=== PATIENT | female | born 1965 | race Caucasian/White ===

== ENCOUNTER 2017-02-02 21:34 | Emergency (ER) | payer MEDICARE, MEDICAID ==
[~2017-02-02] VITALS: Ht 170.2 cm; Wt 73.1 kg
[~2017-02-02 21:34] MED LIST: ACET-1600 PO; EZET10TA3 PO; FLUT1DIS5 IH; GUAI600T53 PO; HUM100VI6 INJ; INSU100V10 INJ; LEVA0.313; LEVO500T33 PO; LISI5TAB7 PO; MONT10TA6 PO; NICO1PAT5 TD; PRED10TA PO
[2017-02-02 23:51] LABS: HEMOGLOBIN 15.7 g/dL (11.7-16.4)
[2017-02-02 23:52] VITALS: BP 122/76
[2017-02-02 23:57] LABS: BLOOD UREA NITROGEN 11 mg/dL (7-18)
[2017-02-03] LABS: ASPARTATE AMINO TRANSFERASE 21 U/L (15-37)
[2017-02-03] MEDS ORDERED: ACETAMINOPHEN 325 MG TABLET PO ONE (00:30)
== END 2017-02-03 01:02 | disposition home or self-care (01) ==
LOC: ED 23:47
DX: R10.9 Unspecified abdominal pain (principal); E11.9 Type 2 diabetes mellitus without complications; I11.0 Hypertensive heart disease with heart failure; I50.9 Heart failure, unspecified; J44.9 Chronic obstructive pulmonary disease, unspecified
CPT/HCPCS: 36415; 80053; 81001; 83690; 85025; 99284

== ENCOUNTER 2017-03-04 17:15 | Emergency (ER) | payer MEDICARE, MEDICAID ==
[~2017-03-04] VITALS: Ht 170.2 cm; Wt 76.5 kg
[2017-03-04] MEDS ORDERED: GABA300C10 PO (18:00)
[2017-03-04] MEDS ORDERED: SODIUM CHLORIDE FLUSH 10ML SYR IVF ONE (18:00)
[2017-03-04] MEDS ORDERED: ALBU18HF INH (18:00)
[2017-03-04] MEDS ORDERED: LOSA25TA5 PO (18:00)
[2017-03-04 18:20] LABS: ASPARTATE AMINO TRANSFERASE 15 U/L (15-37); BLOOD UREA NITROGEN 15 mg/dL (7-18)
[2017-03-04] MEDS ORDERED: MAALOX/HYOSCYAMINE/LIDOCAINE 45 ML BOTTLE PO ONE (18:30)
[2017-03-04] MEDS ORDERED: MAALOX/HYOSCYAMINE/LIDOCAINE 45 ML BOTTLE ONE (18:52)
[2017-03-04 19:28] VITALS: BP 119/71
== END 2017-03-04 19:30 | disposition home or self-care (01) ==
LOC: ED 19:24
DX: R10.11 Right upper quadrant pain (principal); Z90.49 Acquired absence of other specified parts of digestive tract; J44.9 Chronic obstructive pulmonary disease, unspecified; I50.9 Heart failure, unspecified
CPT/HCPCS: 36415; 76700; 80053; 83690; 85025; 93005

== ENCOUNTER 2017-11-16 16:42 | Inpatient (IN) | payer MEDICARE, MEDICAID ==
[~2017-11-16] VITALS: Ht 170.2 cm; Wt 78.6 kg
[~2017-11-16 16:42] MED LIST changes: +ALBU18HF INH; +EZET10TA18 PO; -EZET10TA3 PO; +GABA300C10 PO; -GUAI600T53 PO; +GUAI600T80 PO; -INSU100V10 INJ; +INSU100V11 INJ; -LEVO500T33 PO; +LEVO500T47 PO; +LOSA25TA5 PO; +NICO-487 TD; -NICO1PAT5 TD
[2017-11-16] MEDS ORDERED: ALBUTEROL/IPRATROPIUM 2.5MG/0.5MG, 3 ML NPPB ONE ×2 (17:30→18:30)
[2017-11-16] MEDS ORDERED: SODIUM CHLORIDE FLUSH 10ML SYR IVF ONE (17:30)
[2017-11-16] MEDS ORDERED: ALBUTEROL/IPRATROPIUM 2.5MG/0.5MG, 3 ML ONE (17:49)
[2017-11-16 17:54] LABS: BASOPHILS # (AUTO) 0.04 x10^3/uL (0-0.1); BASOPHILS % (AUTO) 1 % (0-1); EOSINOPHILS % (AUTO) 1 % (1-7); LYMPHOCYTES % (AUTO) 29 % (22-44); MD NO; MEAN CORPUSCULAR HEMOGLOBIN 31.5 pg (27.0-34.8); MEAN CORPUSCULAR HGB CONC 33.7 g/dL (32.4-35.8); MEAN CORPUSCULAR VOLUME 93.6 fL (80-100); MEAN PLATELET VOLUME 6.8 fL (7.4-10.4); MONOCYTES % (AUTO) 13 % (2-9); NEUTROPHILS % (AUTO) 57 % (42-75); PLATELET COUNT 343 x10^3/uL (130-400); RED BLOOD COUNT 4.78 x10^6/uL (3.82-5.3); RED CELL DISTRIBUTION WIDTH 14.4 % (9.6-15.2)
[2017-11-16 18:01] LABS: RAPID INFLUENZA A Negative (Negative); RAPID INFLUENZA B Negative (Negative)
[2017-11-16 18:12] LABS: ALANINE AMINOTRANSFERASE 23 U/L (12-78); ANION GAP 8 mmol/L (5-15); CALCIUM 8.5 mg/dL (8.5-10.1); CHLORIDE 107 mmol/L (98-107); CREATININE 0.77 mg/dL (0.55-1.02)
[2017-11-16 18:16] LABS: ALKALINE PHOSPHATASE 86 U/L (45-117); BILIRUBIN,TOTAL 0.7 mg/dL (0.2-1.0); TOTAL PROTEIN 7.2 g/dL (6.4-8.2); TROPONIN I < 0.015 ng/mL (0.000-0.045)
[2017-11-16] MEDS ORDERED: DOCUSATE 100 MG CAPSULE PO PRN (20:00)
[2017-11-16] MEDS ORDERED: ONDANSETRON ODT 4 MG PO PRN (20:00)
[2017-11-16] MEDS ORDERED: TEMAZEPAM 15 MG CAPSULE PO PRN (20:00)
[2017-11-16] MEDS ORDERED: hydrALAzine 20 MG/ML, 1ML IVPush PRN (20:00)
[2017-11-16] MEDS ORDERED: ALBUTEROL/IPRATROPIUM 2.5MG/0.5MG, 3 ML NPPB PRN (20:00)
[2017-11-16] MEDS: ALBUTEROL/IPRATROPIUM 2.5MG/0.5MG, 3 ML NPPB SCH (20:30)
[2017-11-16 21:20] VITALS: BP 115/76
[2017-11-16] MEDS: GABAPENTIN 300 MG CAPSULE PO SCH (22:55)
[2017-11-16] MEDS ORDERED: CITA40TA5 PO (23:43)
[2017-11-16] MEDS ORDERED: OXCA150T PO (23:43)
[2017-11-16] MEDS ORDERED: TIOT18CA INH (23:43)
[2017-11-16] MEDS ORDERED: HYDR25TA11 PO (23:43)
[2017-11-16] MEDS ORDERED: LOPE2CAP94 PO (23:43)
[2017-11-16] MEDS ORDERED: RISP1TAB45 PO (23:43)
[2017-11-16] MEDS ORDERED: FAMO-79 PO (23:43)
[2017-11-17 02:12] VITALS: BP 105/67
[2017-11-17] MEDS ORDERED: ALBUTEROL SULFATE 2.5 MG/3 ML NPPB PRN (02:30)
[2017-11-17 05:18] LABS: BASOPHILS # (AUTO) 0.02 x10^3/uL (0-0.1); BASOPHILS % (AUTO) 0 % (0-1); EOSINOPHILS % (AUTO) 0 % (1-7); LYMPHOCYTES # (AUTO) 1.03 x10^3/uL (1-3.4); LYMPHOCYTES % (AUTO) 15 % (22-44); MD NO; MEAN CORPUSCULAR HEMOGLOBIN 31.5 pg (27.0-34.8); MEAN CORPUSCULAR HGB CONC 33.7 g/dL (32.4-35.8); MEAN CORPUSCULAR VOLUME 93.5 fL (80-100); MEAN PLATELET VOLUME 7.1 fL (7.4-10.4); MONOCYTES # (AUTO) 0.82 x10^3/uL (0.2-0.8); MONOCYTES % (AUTO) 12 % (2-9); NEUTROPHILS # (AUTO) 5.23 x10^3/uL (1.8-6.8); NEUTROPHILS % (AUTO) 74 % (42-75); PLATELET COUNT 320 x10^3/uL (130-400); RED BLOOD COUNT 4.53 x10^6/uL (3.82-5.3); RED CELL DISTRIBUTION WIDTH 14.5 % (9.6-15.2)
[2017-11-17 05:28] LABS: CHLORIDE 105 mmol/L (98-107)
[2017-11-17 05:34] LABS: ANION GAP 9 mmol/L (5-15); CREATININE 0.68 mg/dL (0.55-1.02)
[2017-11-17] MEDS: ALBUTEROL/IPRATROPIUM 2.5MG/0.5MG, 3 ML NPPB SCH ×2 (06:45→10:15)
[2017-11-17 06:58] VITALS: BP 111/75
[2017-11-17] MEDS ORDERED: MONTELUKAST 10 MG TABLET PO SCH (09:00)
[2017-11-17] MEDS ORDERED: LOSARTAN 25MG TABLET PO SCH (09:00)
[2017-11-17] MEDS ORDERED: METH4TAB2 PO (09:17)
[2017-11-17] MEDS: GABAPENTIN 300 MG CAPSULE PO SCH (09:23)
== END 2017-11-17 13:18 | disposition home or self-care (01) | DRG 189 ==
LOC: ED 17:18 → EDIP 19:27 → 3NE 20:17
PROVIDERS: ADMIT Internal Medicine; ATTEND Hospitalist
DX: J96.01 Acute respiratory failure with hypoxia (principal); E10.40 Type 1 diabetes mellitus with diabetic neuropathy, unspecified; I50.32 Chronic diastolic (congestive) heart failure; I11.0 Hypertensive heart disease with heart failure; J44.1 Chronic obstructive pulmonary disease with (acute) exacerbation; F17.200 Nicotine dependence, unspecified, uncomplicated; F31.9 Bipolar disorder, unspecified; E86.0 Dehydration; G89.29 Other chronic pain; I25.2 Old myocardial infarction; Z79.4 Long term (current) use of insulin; Z81.8 Family history of other mental and behavioral disorders; Z83.3 Family history of diabetes mellitus; Z90.710 Acquired absence of both cervix and uterus; Z98.51 Tubal ligation status; Z90.49 Acquired absence of other specified parts of digestive tract; Z87.01 Personal history of pneumonia (recurrent); Z87.440 Personal history of urinary (tract) infections
CPT/HCPCS: 36415; 71045; 80048; 80053; 83880; 84484; 85025; 87400; 93005; 94640; 99285; J7620; J7512

== ENCOUNTER 2018-06-28 17:09 | Emergency (ER) | payer MEDICARE, MEDICAID ==
[~2018-06-28] VITALS: Ht 170.2 cm; Wt 82.4 kg
[~2018-06-28 17:09] MED LIST changes: +CITA40TA5 PO; +FAMO-79 PO; +HYDR25TA11 PO; +LOPE2CAP94 PO; -LOSA25TA5 PO; +LOSA25TA6 PO; +METH4TAB2 PO; +OXCA150T18 PO; +RISP1TAB45 PO; +TIOT18CA INH
[2018-06-28 17:14] VITALS: BP 139/87
[2018-06-28] MEDS ORDERED: HYDROcodone/APAP 5/325 TABLET PO ONE (19:06)
[2018-06-28] MEDS ORDERED: HYDROcodone/APAP 5/325 TABLET ONE (19:07)
== END 2018-06-28 19:40 | disposition home or self-care (01) ==
LOC: ED 17:30
DX: M25.551 Pain in right hip (principal); F17.210 Nicotine dependence, cigarettes, uncomplicated; J44.9 Chronic obstructive pulmonary disease, unspecified; E11.9 Type 2 diabetes mellitus without complications; I50.9 Heart failure, unspecified; I11.0 Hypertensive heart disease with heart failure; M54.9 Dorsalgia, unspecified; G89.29 Other chronic pain; Z90.49 Acquired absence of other specified parts of digestive tract
CPT/HCPCS: 99284

== ENCOUNTER 2018-07-26 18:19 | Emergency (ER) | payer MEDICARE, MEDICAID ==
[~2018-07-26] VITALS: Ht 165.1 cm; Wt 78.5 kg
[2018-07-26] MEDS ORDERED: DIAZEPAM 5 MG TABLET ONE ×2 (19:30→19:34)
[2018-07-26] MEDS ORDERED: DIAZEPAM 5 MG TABLET PO ONE (19:30)
[2018-07-26 20:19] VITALS: BP 124/76
[2018-07-26 20:26] LABS: MICROSCOPIC INDICATED
[2018-07-26 20:31] LABS: CULTURE INDICATED? NO
== END 2018-07-26 21:10 | disposition home or self-care (01) ==
LOC: ED 20:30
DX: M54.16 Radiculopathy, lumbar region (principal); E10.9 Type 1 diabetes mellitus without complications; I25.2 Old myocardial infarction; J44.9 Chronic obstructive pulmonary disease, unspecified; I11.0 Hypertensive heart disease with heart failure; I50.9 Heart failure, unspecified; Z90.49 Acquired absence of other specified parts of digestive tract; Z90.710 Acquired absence of both cervix and uterus; Z98.61 Coronary angioplasty status
CPT/HCPCS: 72131; 81001; 99285

== ENCOUNTER 2018-10-19 22:21 | Observation (INO) | payer MEDICARE, MEDICAID ==
[~2018-10-19] VITALS: Ht 170.2 cm; Wt 76.1 kg
[~2018-10-19 22:21] MED LIST changes: +LOSA25TA25 PO; -LOSA25TA6 PO
[2018-10-19] MEDS ORDERED: SODIUM CHLORIDE FLUSH 10ML SYR IVF ONE (23:00)
[2018-10-19 23:16] LABS: BASOPHILS # (AUTO) 0.04 x10^3/uL (0-0.1); BASOPHILS % (AUTO) 1 % (0-1); EOSINOPHILS # (AUTO) 0.08 x10^3/uL (0-0.4); EOSINOPHILS % (AUTO) 1 % (1-7); LYMPHOCYTES # (AUTO) 1.77 x10^3/uL (1-3.4); LYMPHOCYTES % (AUTO) 30 % (22-44); MD NO; MEAN CORPUSCULAR HEMOGLOBIN 32.2 pg (27.0-34.8); MEAN CORPUSCULAR HGB CONC 34.1 g/dL (32.4-35.8); MEAN CORPUSCULAR VOLUME 94.6 fL (80-100); MEAN PLATELET VOLUME 7.4 fL (7.4-10.4); MONOCYTES # (AUTO) 0.53 x10^3/uL (0.2-0.8); MONOCYTES % (AUTO) 9 % (2-9); NEUTROPHILS # (AUTO) 3.57 x10^3/uL (1.8-6.8); NEUTROPHILS % (AUTO) 60 % (42-75); PLATELET COUNT 325 x10^3/uL (130-400); RED BLOOD COUNT 4.86 x10^6/uL (3.82-5.3); RED CELL DISTRIBUTION WIDTH 14.3 % (9.6-15.2)
[2018-10-19 23:26] LABS: ALANINE AMINOTRANSFERASE 30 U/L (12-78); ALBUMIN 3.4 g/dL (3.4-5.0); ANION GAP 10 mmol/L (5-15); CALCIUM 8.5 mg/dL (8.5-10.1); CHLORIDE 107 mmol/L (98-107); CREATININE 0.72 mg/dL (0.55-1.02)
[2018-10-19 23:31] LABS: ALKALINE PHOSPHATASE 86 U/L (45-117); TOTAL PROTEIN 6.7 g/dL (6.4-8.2); TROPONIN I < 0.015 ng/mL (0.000-0.045)
--- NOTE | 2018-10-20 00:15 | NUR ---
RECEIVED REPORT FROM VICKY TURK RN. PT RESTING IN BED, CALL LIGHT WITHIN REACH.
[2018-10-20] MEDS ORDERED: ACETAMINOPHEN 325 MG TABLET PO ONE (01:00)
[2018-10-20] MEDS ORDERED: ACETAMINOPHEN 325 MG TABLET ONE (01:02)
--- NOTE | 2018-10-20 01:14 | NUR ---
PT MEDICATED FOR PAIN WITH ORDERED TYLENOL. PT O2 TURNED OFF, PT SATING 100% ON 2L. REPORT GIVEN TO MARTHA ESTRADA FOR ROOM 527. PT RESTING IN BED, CALL LIGHT WITHIN REACH.
[2018-10-20 01:50] VITALS: BP 115/84
[2018-10-20] MEDS ORDERED: NITROGLYCERIN 0.4 MG BOTTLE (25 TABS) SL PRN (02:00)
[2018-10-20] MEDS ORDERED: NITROGLYCERIN 0.4 MG/SPRAY SL PRN (02:00)
[2018-10-20 02:17] VITALS: BP 115/84
[2018-10-20] MEDS ORDERED: SODIUM CHLORIDE 0.9% 1,000 ML IV SCH (05:35)
[2018-10-20] MEDS ORDERED: ALBUTEROL SULFATE 2.5 MG/3 ML NPPB PRN ×2 (06:00→09:30)
[2018-10-20] MEDS ORDERED: KETOROLAC 30 MG/1 ML IV PRN (06:00)
[2018-10-20] MEDS ORDERED: RISPERIDONE 1 MG TABLET PO PRN (06:00)
[2018-10-20 06:47] LABS: TROPONIN I < 0.015 ng/mL (0.000-0.045)
[2018-10-20] MEDS ORDERED: IPRATROPIUM 0.5 MG/2.5 ML INHA NPPB SCH (07:00)
[2018-10-20 07:48] VITALS: BP 130/80
[2018-10-20] MEDS ORDERED: LOSARTAN 25MG TABLET PO SCH (09:00)
[2018-10-20] MEDS ORDERED: MONTELUKAST 10 MG TABLET PO SCH (09:00)
[2018-10-20] MEDS ORDERED: GABAPENTIN 300 MG CAPSULE PO SCH (09:00)
[2018-10-20] MEDS ORDERED: REGADENOSON 0.4 MG/5 ML SYRINGE ONE (09:49)
[2018-10-20] MEDS ORDERED: ALBUTEROL/IPRATROPIUM 2.5MG/0.5MG, 3 ML NPPB SCH (10:00)
[2018-10-20 13:45] VITALS: BP 128/83
== END 2018-10-20 17:04 | disposition home or self-care (01) ==
LOC: ED 23:04 → EDIP 10-20 00:47 → INTOOBSV 10-20 00:47 → 5SO 10-20 01:55
PROVIDERS: ADMIT Hospitalist; ATTEND Hospitalist
DX: R07.89 Other chest pain (principal); E10.40 Type 1 diabetes mellitus with diabetic neuropathy, unspecified; R42 Dizziness and giddiness; F17.200 Nicotine dependence, unspecified, uncomplicated; F31.30 Bipolar disorder, current episode depressed, mild or moderate severity, unspecified; I11.0 Hypertensive heart disease with heart failure; I50.9 Heart failure, unspecified; J44.9 Chronic obstructive pulmonary disease, unspecified; I25.2 Old myocardial infarction; Z79.4 Long term (current) use of insulin; Z90.710 Acquired absence of both cervix and uterus
CPT/HCPCS: 36415; 71045; 78452; 80053; 84484; 85025; 93005; 93017; 94640; 96361; 96374; 99284; A9502; C9898; G0378; J1885; J2785; J7030; J7620

== ENCOUNTER 2018-11-26 13:31 | Emergency (ER) | payer MEDICARE, MEDICAID ==
[~2018-11-26] VITALS: Ht 170.2 cm; Wt 75.4 kg
[2018-11-26 14:02] LABS: BASOPHILS # (AUTO) 0.05 x10^3/uL (0-0.1); BASOPHILS % (AUTO) 1 % (0-1); EOSINOPHILS # (AUTO) 0.13 x10^3/uL (0-0.4); EOSINOPHILS % (AUTO) 1 % (1-7); LYMPHOCYTES # (AUTO) 2.88 x10^3/uL (1-3.4); LYMPHOCYTES % (AUTO) 26 % (22-44); MD NO; MEAN CORPUSCULAR HEMOGLOBIN 31.1 pg (27.0-34.8); MEAN CORPUSCULAR VOLUME 94.3 fL (80-100); MONOCYTES # (AUTO) 0.81 x10^3/uL (0.2-0.8); MONOCYTES % (AUTO) 7 % (2-9); NEUTROPHILS # (AUTO) 7.05 x10^3/uL (1.8-6.8); NEUTROPHILS % (AUTO) 65 % (42-75); PLATELET COUNT 306 x10^3/uL (130-400); RED BLOOD COUNT 5.41 x10^6/uL (3.82-5.3); RED CELL DISTRIBUTION WIDTH 13.2 % (9.6-15.2)
[2018-11-26 14:12] LABS: ALANINE AMINOTRANSFERASE 24 U/L (12-78); ALBUMIN 3.8 g/dL (3.4-5.0); ANION GAP 6 mmol/L (5-15); CALCIUM 9.6 mg/dL (8.5-10.1); CHLORIDE 106 mmol/L (98-107); CREATININE 0.97 mg/dL (0.55-1.02)
[2018-11-26 14:14] LABS: ALKALINE PHOSPHATASE 105 U/L (45-117); TOTAL PROTEIN 7.6 g/dL (6.4-8.2)
--- NOTE | 2018-11-26 15:18 | NUR ---
AIRLINE RADIO OPERATOR: PT TO ROOM FROM LOBBY, GAIT SLOW AND STEADY. PT ATTEMPTING TO PROVIDE URINE SPECIMAN.
[2018-11-26 15:42] LABS: MICROSCOPIC INDICATED
[2018-11-26 15:43] LABS: CULTURE INDICATED? YES; HCG UR SG >= 1.030 (1.003-1.030)
--- NOTE | 2018-11-26 15:50 | NUR ---
BLADDER SCAN <15ML
--- NOTE | 2018-11-26 16:02 | NUR ---
LATE ENTRY FOR 1520: PRESENTS WITH DYSURIA/BILATERAL FLANK PAIN X 8 HOURS. DENIES N/V/CHILLS. AFEBRILE/HR 90
[2018-11-26 17:15] VITALS: BP 145/79
== END 2018-11-26 17:17 | disposition home or self-care (01) ==
LOC: ED 15:38
DX: N30.01 Acute cystitis with hematuria (principal); J44.9 Chronic obstructive pulmonary disease, unspecified; E11.9 Type 2 diabetes mellitus without complications; I11.0 Hypertensive heart disease with heart failure; I50.9 Heart failure, unspecified; Z90.49 Acquired absence of other specified parts of digestive tract; Z90.710 Acquired absence of both cervix and uterus; F17.200 Nicotine dependence, unspecified, uncomplicated
CPT/HCPCS: 36415; 80053; 81001; 81025; 83690; 85025; 87086; 99283

== ENCOUNTER 2019-01-04 00:19 | Emergency (ER) | payer MEDICARE, MEDICAID ==
--- NOTE | 2019-01-04 00:44 | NUR ---
first contact with pt. pt c/o sudden onset of cp radiating to left arm and left jaw w/ na and sob for a few hours. pt has hx of chf. pt denies covarrubias/v/d at this time. all monitors in place. call light within reach. pt's at bedside. awaiting edmd assessment at this time.
[2019-01-04 01:31] LABS: ALANINE AMINOTRANSFERASE 35 U/L (12-78); ALBUMIN 3.6 g/dL (3.4-5.0); ANION GAP 7 mmol/L (5-15); BASOPHILS # (AUTO) 0.03 x10^3/uL (0-0.1); BASOPHILS % (AUTO) 0 % (0-1); CALCIUM 8.8 mg/dL (8.5-10.1); CHLORIDE 108 mmol/L (98-107); CREATININE 0.76 mg/dL (0.55-1.02); EOSINOPHILS # (AUTO) 0.13 x10^3/uL (0-0.4); EOSINOPHILS % (AUTO) 2 % (1-7); LYMPHOCYTES # (AUTO) 2.37 x10^3/uL (1-3.4); LYMPHOCYTES % (AUTO) 40 % (22-44); MD NO; MEAN CORPUSCULAR HEMOGLOBIN 31.6 pg (27.0-34.8); MEAN CORPUSCULAR HGB CONC 34.2 g/dL (32.4-35.8); MEAN CORPUSCULAR VOLUME 92.3 fL (80-100); MEAN PLATELET VOLUME 7.8 fL (7.4-10.4); MONOCYTES # (AUTO) 0.66 x10^3/uL (0.2-0.8); MONOCYTES % (AUTO) 11 % (2-9); NEUTROPHILS # (AUTO) 2.75 x10^3/uL (1.8-6.8); NEUTROPHILS % (AUTO) 46 % (42-75); PLATELET COUNT 329 x10^3/uL (130-400); RED BLOOD COUNT 4.83 x10^6/uL (3.82-5.3); RED CELL DISTRIBUTION WIDTH 13.5 % (9.6-15.2)
--- NOTE | 2019-01-04 01:31 | NUR ---
PT C/O CP AT THIS TIME AND REQUESTING PAIN MED. EDMD NOTIFIED.
[2019-01-04] MEDS ORDERED: KETOROLAC 30 MG/1 ML ONE (01:33)
[2019-01-04 01:35] LABS: ALKALINE PHOSPHATASE 109 U/L (45-117); BILIRUBIN,TOTAL 0.6 mg/dL (0.2-1.0); TROPONIN I < 0.015 ng/mL (0.000-0.045)
--- NOTE | 2019-01-04 01:40 | NUR ---
PT MEDICATED PER EMAR FOR CP. PT TOLERATED WELL. PT'S AOX4. RESPS EVEN AND UNLABORED.
[2019-01-04] MEDS ORDERED: KETOROLAC 30 MG/1 ML IM ONE (02:00)
--- NOTE | 2019-01-04 02:25 | NUR ---
PT RESTING IN [facility]. ALL MONITORS IN PLACE. CALL LIGHT WITHIN REACH. EDMD AT BEDSIDE TO EXPLAIN ALL RESULTS AT THIS TIME.
[2019-01-04 02:36] VITALS: BP 133/94
--- NOTE | 2019-01-04 02:43 | NUR ---
PT GIVEN DC INSTRUCTIONS. PT AMB TO DC WITH STEADY GAIT. PT'S AOX4. RESPS EVEN AND UNLABORED. NSR ON CARDIC MONITOR AT DC. NO ACUTE DISTRESS AT DC.
== END 2019-01-04 02:38 | disposition home or self-care (01) ==
LOC: ED 01:07
DX: R07.89 Other chest pain (principal); R06.02 Shortness of breath; I25.2 Old myocardial infarction; I50.9 Heart failure, unspecified
CPT/HCPCS: 36415; 71045; 80053; 83880; 84484; 85025; 93005; 96372; 99284; J1885

== ENCOUNTER 2019-01-28 21:39 | Emergency (ER) | payer MEDICARE, MEDICAID ==
[~2019-01-28] VITALS: Ht 170.2 cm; Wt 80.0 kg
[2019-01-28 21:40] VITALS: BP 118/74
== END 2019-01-28 23:17 | disposition home or self-care (01) ==
LOC: ED 22:29
DX: M25.551 Pain in right hip (principal); M79.651 Pain in right thigh; G89.29 Other chronic pain; E11.9 Type 2 diabetes mellitus without complications; I11.0 Hypertensive heart disease with heart failure; I50.9 Heart failure, unspecified; J44.9 Chronic obstructive pulmonary disease, unspecified; F17.200 Nicotine dependence, unspecified, uncomplicated; Z90.89 Acquired absence of other organs; Z90.49 Acquired absence of other specified parts of digestive tract
CPT/HCPCS: 72110; 99283

== ENCOUNTER 2019-03-01 05:03 | Emergency (ER) | payer MEDICARE, MEDICAID ==
[~2019-03-01] VITALS: Ht 170.2 cm; Wt 69.5 kg
[2019-03-01 05:05] VITALS: BP 115/75
[2019-03-01] MEDS ORDERED: BACITRACIN ZINC OINT 500U/GM, 0.9 GM ONE (05:34)
[2019-03-01] MEDS ORDERED: BACITRACIN ZINC OINT 500U/GM, 0.9 GM TP SCH (06:00)
== END 2019-03-01 06:34 | disposition home or self-care (01) ==
LOC: ED 05:57
DX: S80.811A Abrasion, right lower leg, initial encounter (principal); I11.0 Hypertensive heart disease with heart failure; I50.9 Heart failure, unspecified; E11.9 Type 2 diabetes mellitus without complications; J44.9 Chronic obstructive pulmonary disease, unspecified; W18.30XA Fall on same level, unspecified, initial encounter; Y93.89 Activity, other specified; Y92.89 Other specified places as the place of occurrence of the external cause; Y99.8 Other external cause status; Z90.49 Acquired absence of other specified parts of digestive tract; Z90.710 Acquired absence of both cervix and uterus
CPT/HCPCS: 70450; 82962; 99284

== ENCOUNTER 2019-03-15 19:29 | Emergency (ER) | payer MEDICARE, MEDICAID ==
[~2019-03-15] VITALS: Ht 170.2 cm; Wt 69.9 kg
--- NOTE | 2019-03-15 19:53 | NUR ---
assessment made. chart up for MD to see.
[2019-03-15] MEDS ORDERED: ALBUTEROL/IPRATROPIUM 2.5MG/0.5MG, 3 ML ONE ×2 (20:18→21:10)
--- NOTE | 2019-03-15 20:20 | NUR ---
PT TO XRAY
[2019-03-15 20:21] LABS: BASOPHILS # (AUTO) 0.01 x10^3/uL (0-0.1); BASOPHILS % (AUTO) 0 % (0-1); EOSINOPHILS # (AUTO) 0.06 x10^3/uL (0-0.4); EOSINOPHILS % (AUTO) 1 % (1-7); LYMPHOCYTES # (AUTO) 0.88 x10^3/uL (1-3.4); LYMPHOCYTES % (AUTO) 10 % (22-44); MD NO; MEAN CORPUSCULAR HEMOGLOBIN 31.5 pg (27.0-34.8); MEAN CORPUSCULAR HGB CONC 33.4 g/dL (32.4-35.8); MEAN CORPUSCULAR VOLUME 94.3 fL (80-100); MEAN PLATELET VOLUME 7.3 fL (7.4-10.4); MONOCYTES # (AUTO) 0.51 x10^3/uL (0.2-0.8); MONOCYTES % (AUTO) 6 % (2-9); NEUTROPHILS # (AUTO) 7.68 x10^3/uL (1.8-6.8); NEUTROPHILS % (AUTO) 84 % (42-75); PLATELET COUNT 311 x10^3/uL (130-400); RED BLOOD COUNT 5.17 x10^6/uL (3.82-5.3); RED CELL DISTRIBUTION WIDTH 14.1 % (9.6-15.2)
[2019-03-15] MEDS ORDERED: ALBUTEROL/IPRATROPIUM 2.5MG/0.5MG, 3 ML NPPB ONE ×2 (20:30→21:00)
[2019-03-15 20:34] LABS: ALANINE AMINOTRANSFERASE 28 U/L (12-78); ALBUMIN 4.1 g/dL (3.4-5.0); ANION GAP 7 mmol/L (5-15); CALCIUM 9.5 mg/dL (8.5-10.1); CHLORIDE 109 mmol/L (98-107); CREATININE 0.87 mg/dL (0.55-1.02)
[2019-03-15 20:39] LABS: ALKALINE PHOSPHATASE 116 U/L (45-117); TOTAL PROTEIN 7.6 g/dL (6.4-8.2); TROPONIN I < 0.015 ng/mL (0.000-0.045)
[2019-03-15] MEDS ORDERED: DEXAMETHASONE 4 MG TABLET ONE (21:21)
[2019-03-15 21:25] VITALS: BP 126/81
--- NOTE | 2019-03-15 21:25 | NUR ---
ADDITIONAL LABS DRAWN, BREATHING TX GIVEN AND PT MEDICATED PER DEC. PT RESTING IN GURNEY WITH FAMILY AT BEDSIDE, NAD. CALL LIGHT WITHIN REACH
[2019-03-15] MEDS ORDERED: DEXAMETHASONE 4 MG TABLET PO ONE (21:30)
== END 2019-03-15 21:49 | disposition home or self-care (01) ==
LOC: ED 20:38
DX: E11.9 Type 2 diabetes mellitus without complications (principal); J44.9 Chronic obstructive pulmonary disease, unspecified; I11.0 Hypertensive heart disease with heart failure; I50.9 Heart failure, unspecified; J06.9 Acute upper respiratory infection, unspecified; Z90.49 Acquired absence of other specified parts of digestive tract; Z90.710 Acquired absence of both cervix and uterus
CPT/HCPCS: 36415; 71046; 80053; 84484; 85025; 85379; 87081; 87880; 93005; 94640; 99284; J7620

== ENCOUNTER 2019-03-19 09:15 | Emergency (ER) | payer MEDICARE, MEDICAID ==
[~2019-03-19] VITALS: Ht 170.2 cm; Wt 68.6 kg
--- NOTE | 2019-03-19 09:46 | NUR ---
PATIENT PRESENTS TO ED TODAY FOR ALLERGIC REACTION, SEEN LAST SATURDAY FOR SOB/BRONCHITIS, GIVEN STEROID, PATIENT REPORTS VOMITING, THROAT FEELING TIGHT, AND BILAT EYE PAIN/SWELLING/ITCHING SINCE TAKING THE STEROIDS. BENADRYL TAKEN LAST NIGHT PER PATIENT. MD AT BEDSIDE, CALL LIGHT WITHIN REACH. WARM BLANKET PROVIDED.
[2019-03-19] MEDS ORDERED: OLAN5TAB9 PO (09:55)
[2019-03-19] MEDS ORDERED: INSU100C5 SQ-INSULIN (09:56)
[2019-03-19] MEDS ORDERED: DIPHENHYDRAMINE 25 MG CAPSULE ONE (09:57)
[2019-03-19] MEDS ORDERED: DIPHENHYDRAMINE 25 MG CAPSULE PO ONE (10:00)
[2019-03-19] MEDS ORDERED: ALBUTEROL/IPRATROPIUM 2.5MG/0.5MG, 3 ML NPPB ONE (10:00)
[2019-03-19] MEDS ORDERED: ALBUTEROL/IPRATROPIUM 2.5MG/0.5MG, 3 ML ONE (10:04)
[2019-03-19 10:05] VITALS: BP 111/81
[2019-03-19] MEDS ORDERED: ALBUTEROL SULFATE 2.5 MG/3 ML NPPB PRN (10:30)
--- NOTE | 2019-03-19 10:35 | NUR ---
PRECEPTOR RN: BEDSIDE REPORT W/ RN JERE RECEIVED FROM [facility]EDIOS ESTRADA, PT CARE ASSUMED AT THIS TIME. PT IN BED, NAD, AWAITING RECHECK, NO NEEDS AT THIS TIME. WCAPOLLO.
[2019-03-19] MEDS ORDERED: IPRATROPIUM 0.5 MG/2.5 ML INHA NPPB SCH (15:00)
== END 2019-03-19 11:38 | disposition home or self-care (01) ==
LOC: ED 11:33
DX: J44.1 Chronic obstructive pulmonary disease with (acute) exacerbation (principal); H10.023 Other mucopurulent conjunctivitis, bilateral; E11.9 Type 2 diabetes mellitus without complications; J44.9 Chronic obstructive pulmonary disease, unspecified; I11.0 Hypertensive heart disease with heart failure; I50.9 Heart failure, unspecified; I25.2 Old myocardial infarction; Z90.49 Acquired absence of other specified parts of digestive tract; Z90.710 Acquired absence of both cervix and uterus; F17.200 Nicotine dependence, unspecified, uncomplicated
CPT/HCPCS: 94640; 99283; J7620; Q0163

== ENCOUNTER 2019-10-06 02:12 | Emergency (ER) | payer MEDICARE, MEDICAID ==
[~2019-10-06] VITALS: Ht 170.2 cm; Wt 78.9 kg
[~2019-10-06 02:12] MED LIST changes: -EZET10TA18 PO; +EZET10TA70 PO; +HYDR-826 PO; -HYDR25TA11 PO; +INSU100C5 SQ-INSULIN; +LOPE-114 PO; -LOPE2CAP94 PO; +OLAN5TAB9 PO
[2019-10-06 02:15] VITALS: BP 154/91
--- NOTE | 2019-10-06 02:34 | NUR ---
INITIAL CONTACT WITH PT. ASSESSMENT DONE. PT HAS BEEN SEEN BY PA AND WAITING FOR ORDERS. PT IS SITTING ON NAD. MARY JANE
[2019-10-06] MEDS ORDERED: DIAZEPAM 5 MG TABLET ONE (02:54)
--- NOTE | 2019-10-06 02:57 | NUR ---
MED GIVEN CHARTED, 5 RIGHTS VERIFIED. PT DC'D HOME WITH RX X 1 AND UNDERSTANDING OF INSTRUCTIONS. PT TO DC DESK WITHOUT ASSIST.
[2019-10-06] MEDS ORDERED: DIAZEPAM 5 MG TABLET PO ONE (03:00)
== END 2019-10-06 03:02 | disposition home or self-care (01) ==
LOC: ED 02:56
DX: S39.012A Strain of muscle, fascia and tendon of lower back, initial encounter (principal); I11.0 Hypertensive heart disease with heart failure; I50.9 Heart failure, unspecified; J44.9 Chronic obstructive pulmonary disease, unspecified; Z90.49 Acquired absence of other specified parts of digestive tract; Z90.710 Acquired absence of both cervix and uterus; Z98.61 Coronary angioplasty status; F17.210 Nicotine dependence, cigarettes, uncomplicated; X58.XXXA Exposure to other specified factors, initial encounter; Y93.89 Activity, other specified; Y92.89 Other specified places as the place of occurrence of the external cause; Y99.8 Other external cause status
CPT/HCPCS: 99283

== ENCOUNTER 2020-07-07 19:13 | Emergency (ER) | payer MEDICARE, MEDICAID ==
[~2020-07-07] VITALS: Ht 170.2 cm; Wt 75.6 kg
[2020-07-07] MEDS ORDERED: METOCLOPRAMIDE 5 MG/ML, 2ML ONE (19:44)
[2020-07-07] MEDS ORDERED: KETOROLAC 30 MG/1 ML ONE (19:44)
[2020-07-07] MEDS ORDERED: KETOROLAC 30 MG/1 ML IVPush ONE (20:00)
[2020-07-07] MEDS ORDERED: METOCLOPRAMIDE 5 MG/ML, 2ML IVPush ONE (20:00)
[2020-07-07] MEDS ORDERED: SODIUM CHLORIDE FLUSH 10ML SYR IVF ONE (20:00)
--- NOTE | 2020-07-07 20:34 | NUR ---
Ambulated to bathroom independently, steady gait
[2020-07-07 21:11] LABS: BASOPHILS # (AUTO) 0.03 x10^3/uL (0-0.1); BASOPHILS % (AUTO) 1 % (0-1); EOSINOPHILS # (AUTO) 0.09 x10^3/uL (0-0.4); EOSINOPHILS % (AUTO) 2 % (1-7); LYMPHOCYTES # (AUTO) 2.58 x10^3/uL (1-3.4); LYMPHOCYTES % (AUTO) 47 % (22-44); MD NO; MEAN CORPUSCULAR HEMOGLOBIN 30.2 pg (27.0-34.8); MEAN CORPUSCULAR HGB CONC 32.7 g/dL (32.4-35.8); MEAN CORPUSCULAR VOLUME 92.4 fL (80-100); MEAN PLATELET VOLUME 8.4 fL (7.4-10.4); MONOCYTES # (AUTO) 0.38 x10^3/uL (0.2-0.8); MONOCYTES % (AUTO) 7 % (2-9); NEUTROPHILS # (AUTO) 2.43 x10^3/uL (1.8-6.8); NEUTROPHILS % (AUTO) 44 % (42-75); PLATELET COUNT 297 x10^3/uL (130-400); RED BLOOD COUNT 4.91 x10^6/uL (3.82-5.3); RED CELL DISTRIBUTION WIDTH 13.5 % (9.6-15.2)
[2020-07-07 21:16] VITALS: BP 102/57
[2020-07-07 21:16] LABS: ALBUMIN 3.3 g/dL (3.4-5.0); ANION GAP 8 mmol/L (5-15); CALCIUM 9.2 mg/dL (8.5-10.1); CHLORIDE 108 mmol/L (98-107); CREATININE 0.68 mg/dL (0.55-1.02)
== END 2020-07-07 21:19 | disposition home or self-care (01) ==
LOC: EDUNIT# 19:13 → EDBD 19:13 → ED 20:21
DX: G43.001 Migraine without aura, not intractable, with status migrainosus (principal); H53.8 Other visual disturbances; R11.0 Nausea; J44.9 Chronic obstructive pulmonary disease, unspecified; I11.0 Hypertensive heart disease with heart failure; I50.9 Heart failure, unspecified; E11.9 Type 2 diabetes mellitus without complications; F17.200 Nicotine dependence, unspecified, uncomplicated
CPT/HCPCS: 36415; 80048; 82040; 85025; 94640; 99283; 99406

== ENCOUNTER 2020-07-12 13:08 | Emergency (ER) | payer MEDICARE, MEDICAID ==
[~2020-07-12] VITALS: Ht 170.2 cm; Wt 79.3 kg
[2020-07-12 13:21] VITALS: BP 132/81
[2020-07-12] MEDS ORDERED: ACETAMINOPHEN 325 MG TABLET ONE (13:51)
[2020-07-12] MEDS ORDERED: ACETAMINOPHEN 325 MG TABLET PO ONE (14:00)
[2020-07-12] MEDS ORDERED: HYDROmorphone 2 MG/ML, 1ML IM ONE (15:30)
[2020-07-12] MEDS ORDERED: PROMETHAZINE 25 MG/ML, 1ML IM ONE (15:30)
[2020-07-12] MEDS ORDERED: PROMETHAZINE 25 MG/ML, 1ML ONE (15:41)
[2020-07-12] MEDS ORDERED: HYDROmorphone 1 MG/ML, 1ML INJ ONE (15:41)
== END 2020-07-12 16:00 | disposition home or self-care (01) ==
LOC: ED 14:38
DX: M54.6 Pain in thoracic spine (principal); M54.5 Low back pain; E11.9 Type 2 diabetes mellitus without complications; G43.909 Migraine, unspecified, not intractable, without status migrainosus; I25.2 Old myocardial infarction; Z90.49 Acquired absence of other specified parts of digestive tract; Z90.710 Acquired absence of both cervix and uterus; Z98.61 Coronary angioplasty status
CPT/HCPCS: 72072; 72110; 96372; 99284; J1170; J2550